=== PATIENT | male | born 1980 | race Caucasian/White ===

== ENCOUNTER 2016-10-01 14:30 | Emergency (ER) | payer MEDICAID, OTHER ==
[2016-10-01 15:04] VITALS: BP 130/84; PULSE 87; RESP 18; TEMP 97.2
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
--- NOTE | 2016-10-01 15:55 | XR ---
EXAMINATION TYPE: XR foot complete LT DATE OF EXAM: 10/01/2016 3:50 PM CLINICAL HISTORY: Medial pain after hockey injury. TECHNIQUE: Frontal, lateral, and oblique images of the left foot are obtained. COMPARISON: None FINDINGS: There is acute oblique minimally displaced intra-articular fracture through the medial bas e of the first proximal phalanx. Lateral view is suboptimal due to osseous overlap. Joint spaces in t he right foot appear within normal limits. The overlying soft tissue appears unremarkable. IMPRESSION: There is acute minimally displaced oblique intra-articular fracture through the medial b ase of first proximal phalanx. (Initial encounter closed type post traumatic fracture)
== END 2016-10-01 16:44 | disposition home or self-care (01) ==
LOC: EC 14:30
DX: S92.912A Unspecified fracture of left toe(s), initial encounter for closed fracture (principal); F95.2 Tourette's disorder; F90.9 Attention-deficit hyperactivity disorder, unspecified type; F17.200 Nicotine dependence, unspecified, uncomplicated; Z88.2 Allergy status to sulfonamides; Z79.899 Other long term (current) drug therapy; W50.0XXA Accidental hit or strike by another person, initial encounter
CPT/HCPCS: 99283

== ENCOUNTER 2016-10-18 05:57 | Emergency (ER) | payer OTHER ==
[2016-10-18 06:03] VITALS: BP 125/66; PULSE 98; RESP 18; TEMP 97
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
--- NOTE | 2016-10-18 06:34 | XR ---
EXAMINATION TYPE: XR wrist complete RT DATE OF EXAM: 10/18/2016 6:24 AM CLINICAL HISTORY: pain right wrist pain from punching floor. TECHNIQUE: Frontal, lateral and oblique images of the right wrist are obtained. COMPARISON: None. FINDINGS: There is no acute fracture/dislocation evident. The joint spaces appear within normal limits. The o verlying soft tissue appears unremarkable. There is possibility of old fracture in the right first me tacarpal bone. IMPRESSION: There is no acute fracture or dislocation seen. ICD 10 NO FRACTURE, INITIAL EVALUATION
--- NOTE | 2016-10-18 06:37 | XR ---
EXAMINATION TYPE: XR hand complete RT DATE OF EXAM: 10/18/2016 6:24 AM CLINICAL HISTORY: pain punching the floor TECHNIQUE: Frontal, lateral and oblique images of the right hand are obtained. COMPARISON: None. FINDINGS: There is no acute fracture/dislocation evident. The joint spaces appear within normal limi ts. Mild soft tissue swelling is present. There is possibility of old fracture of right first metacar pal bone. IMPRESSION: There is no acute fracture or dislocation. If clinical symptoms persist follow-up fracture a follow-u p in one week's time may be helpful. ICD 10 NO FRACTURE, INITIAL EVALUATION
== END 2016-10-18 06:50 | disposition home or self-care (01) ==
LOC: EC 05:57
DX: S60.221A Contusion of right hand, initial encounter (principal); F95.2 Tourette's disorder; F90.9 Attention-deficit hyperactivity disorder, unspecified type; F41.9 Anxiety disorder, unspecified; F31.9 Bipolar disorder, unspecified; F17.200 Nicotine dependence, unspecified, uncomplicated; W22.03XA Walked into furniture, initial encounter; Z79.899 Other long term (current) drug therapy; Z88.2 Allergy status to sulfonamides
CPT/HCPCS: 99283

== ENCOUNTER 2016-10-26 09:58 | Emergency (ER) | payer OTHER ==
[2016-10-26 10:04] VITALS: BP 126/65; PULSE 84; RESP 18; TEMP 96.9
--- NOTE | 2016-10-26 10:53 | ED ---
Neck Injury/Pain HPI - General Chief Complaint: Neck Pain/Injury Stated Complaint: headache, body pain Time Seen by Provider: 10/26/16 10:21 Source: patient, RN notes reviewed Mode of arrival: ambulatory Limitations: no limitations - History of Present Illness Initial Comments: This patient is a 36-year-old man who presents requesting pain medication for neck, back, and head pain. The patient states that he has the pains related to the tics that he has as a consequence of Tourette's syndrome. The patient states that he has not been able to establish a primary physician in the area due to insurance reasons, and that for that reason his previous pain regimen has lapsed. The patient denies any new injury. He states that the pain is chronic and intermittent. He indicates the areas of the right trapezius and paraspinal muscles as the greatest. It seems to him that this is where his tics are most severe. MD Complaint: neck pain -: month(s) Severity: severe, intermittent, similar to prior neck pain Quality: aching Improves With: none Worsens With: movement of neck Context: other (Tics) Associated Symptoms: none - Related Data Home Medications Medication Instructions Recorded Confirmed cloNIDine HCL [Catapres] 0.2 mg PO BID 07/01/16 10/26/16 Previous Rx's Medication Instructions Recorded Gabapentin [Neurontin] 800 mg PO TID #120 cap 07/04/16 risperiDONE [RisperDAL] 3 mg PO HS #90 tab 07/04/16 Baclofen [Lioresal] 20 mg PO TID #45 tab 10/26/16 Allergies Allergy/AdvReac Type Severity Reaction Status Date / Time Sulfa (Sulfonamide Allergy Unknown Verified 10/26/16 10:04 Antibiotics) Childhood Review of Systems ROS Statement: Those systems with pertinent positive or pertinent negative responses have been documented in the HPI. ROS Other: All systems not noted in ROS Statement are negative. Constitutional: Denies: fever, chills ENT: Denies: throat pain Respiratory: Denies: cough, dyspnea Cardiovascular: Denies: chest pain, palpitations, dyspnea on exertion Gastrointestinal: Denies: abdominal pain Musculoskeletal: Reports: as per HPI, back pain Neurological: Denies: weakness, numbness, paresthesias Past Medical History Additional Past Medical History / Comment(s): TOURETTE'S, Anxiety History of Any Multi-Drug Resistant Organisms: None Reported Past Surgical History: No Surgical Hx Reported Past Psychological History: ADD/ADHD, Anxiety, Bipolar Smoking Status: Current every day smoker Past Alcohol Use History: None Reported Past Drug Use History: None Reported General Exam Limitations: no limitations General appearance: alert, in no apparent distress Head exam: Present: atraumatic, normocephalic Eye exam: Present: normal appearance. Absent: scleral icterus, conjunctival injection ENT exam: Present: normal oropharynx Neck exam: Present: normal inspection, tenderness (Right trapezius and paraspinal muscles), full ROM Respiratory exam: Present: normal lung sounds bilaterally. Absent: respiratory distress, wheezes, rales, rhonchi, stridor Cardiovascular Exam: Present: regular rate, normal rhythm, normal heart sounds. Absent: systolic murmur, diastolic murmur, rubs, gallop GI/Abdominal exam: Present: soft. Absent: distended, tenderness, guarding, rebound Back exam: Present: normal inspection, paraspinal tenderness. Absent: CVA tenderness (R), CVA tenderness (L), vertebral tenderness Neurological exam: Present: alert Skin exam: Present: warm, dry, intact, normal color. Absent: rash Course Vital Signs 10/26/16 10/26/16 10:01 11:16 Temperature 96.9 F L 96.9 F L Pulse Rate 84 84 Respiratory 18 18 Rate Blood Pressure 126/65 126/65 O2 Sat by Pulse 99 99 Oximetry Disposition Clinical Impression: Tourette syndrome, Neck pain Disposition: HOME SELF-CARE Condition: Good Instructions: Cervical Strain (ED) Prescriptions: Baclofen [Lioresal] 20 mg PO TID #45 tab Referrals: Diana James MD [STAFF PHYSICIAN] - 1-2 days Lin Sharma MD [REFERRING] - 1-2 days Lin Matthew MD [STAFF PHYSICIAN] - 1-2 days
[2016-10-26] MEDS ORDERED: BACLOFEN 10 MG TAB PO STA (10:56)
== END 2016-10-26 11:16 | disposition home or self-care (01) ==
LOC: EC 09:58
DX: S16.1XXA Strain of muscle, fascia and tendon at neck level, initial encounter (principal); F95.2 Tourette's disorder; F31.9 Bipolar disorder, unspecified; F90.9 Attention-deficit hyperactivity disorder, unspecified type; F41.9 Anxiety disorder, unspecified; F17.200 Nicotine dependence, unspecified, uncomplicated; Z79.899 Other long term (current) drug therapy; Z88.2 Allergy status to sulfonamides; X58.XXXA Exposure to other specified factors, initial encounter
CPT/HCPCS: 99283

== ENCOUNTER 2016-10-29 14:31 | Inpatient (IN) | payer MEDICAID, OTHER ==
--- NOTE | 2016-10-29 15:44 | ED ---
Psych HPI <Sunil Palencia - Last Filed: 10/29/16 19:05> - General Source: patient, RN notes reviewed Mode of arrival: ambulatory <Natasha Leslie - Last Filed: 10/29/16 19:17> - General Chief Complaint: Psychiatric Symptoms Stated Complaint: Mental Health Time Seen by Provider: 10/29/16 15:15 - History of Present Illness Initial Comments: Patient is a 36-year-old male presents to the emergency room for psychiatric evaluation. Patient states been depressed for the past few months. Patient does admit that he follows up with [facility] and was supposed to meet with his counselor on Thursday. Patient states "I cannot seem to kill myself". Patient states last night he took about 10 baclofen and was very upset that he still alive. Patient denies abdominal pain, nausea, vomiting, headache, dizziness, chest pain, shortness of breath, weakness, numbness or tingling in extremities. Patient states that a lot has been going on his life and he feels " inside ". Patient states that he does not want to live anymore. Patient also states that he's been having homicidal ideations towards one of his old roommates because he owes him a lot of money. Patient also states he's been hearing voices in his head telling him to hurt his old roommate. Patient denies visual hallucinations. Patient denies alcohol use. Patient does admit he smokes half a pack of cigarettes per day. Patient denies illicit drug use. Patient denies significant past medical history. Patient states he feels like he needs to be admitted and have his depression medications adjusted. (Natasha Leslie) - Related Data Home Medications Medication Instructions Recorded Confirmed cloNIDine HCL [Catapres] 0.2 mg PO TID 07/01/16 10/29/16 buPROPion [Wellbutrin] 100 mg PO BID 10/29/16 10/29/16 risperiDONE 3 mg PO HS 10/29/16 10/29/16 Previous Rx's Medication Instructions Recorded Gabapentin [Neurontin] 800 mg PO TID #120 cap 07/04/16 Baclofen [Lioresal] 20 mg PO TID #45 tab 10/26/16 Allergies Allergy/AdvReac Type Severity Reaction Status Date / Time iodine Allergy Rash/Hives Verified 10/29/16 16:05 shellfish derived [Shellfish] Allergy Rash/Hives Verified 10/29/16 16:05 Sulfa (Sulfonamide Allergy Unknown Verified 10/29/16 16:05 Antibiotics) Childhood Review of Systems ROS Other: All systems not noted in ROS Statement are negative. <Sunil Palencia - Last Filed: 10/29/16 19:05> ROS Other: All systems not noted in ROS Statement are negative. <Natasha Leslie - Last Filed: 10/29/16 19:17> ROS Statement: Those systems with pertinent positive or pertinent negative responses have been documented in the HPI. Past Medical History Additional Past Medical History / Comment(s): TOURETTE'S, Anxiety History of Any Multi-Drug Resistant Organisms: None Reported Past Surgical History: No Surgical Hx Reported Past Psychological History: ADD/ADHD, Anxiety, Bipolar Smoking Status: Current every day smoker Past Alcohol Use History: None Reported Past Drug Use History: None Reported <Natasha Leslie - Last Filed: 10/29/16 19:17> General Exam <Sunil Palencia - Last Filed: 10/29/16 19:05> Limitations: no limitations General appearance: alert, in no apparent distress Head exam: Present: atraumatic, normocephalic, normal inspection Eye exam: Present: normal appearance ENT exam: Present: normal exam Neck exam: Present: normal inspection Respiratory exam: Present: normal lung sounds bilaterally. Absent: respiratory distress Cardiovascular Exam: Present: regular rate, normal rhythm, normal heart sounds GI/Abdominal exam: Present: soft, normal bowel sounds. Absent: distended, tenderness, guarding, rebound, rigid Extremities exam: Present: normal inspection Back exam: Present: normal inspection Neurological exam: Present: alert, oriented X3, CN II-XII intact, normal gait Psychiatric exam: Present: normal affect, normal mood Skin exam: Present: warm, dry, intact, normal color. Absent: rash <Natasha Leslie - Last Filed: 10/29/16 19:17> - General Exam Comments Initial Comments: Sitting in exam room in no acute distress. (Natasha Leslie) Disposition <Sunil Palencia - Last Filed: 10/29/16 19:05> Decision Date: 10/29/16 <Natasha Leslie - Last Filed: 10/29/16 19:17> Clinical Impression: Depression Disposition: ADMITTED IP TO THIS HOSP Condition: Stable
[2016-10-29] MEDS ORDERED: LORazepam 1 MG TAB PO STA (17:32)
[2016-10-29] MEDS ORDERED: MAG HYDROX/AL HYDROX/SIMETH 30 ML CUP PO PRN (19:57)
[2016-10-29] MEDS ORDERED: ACETAMINOPHEN TAB 325 MG TAB PO PRN (19:57)
[2016-10-29] MEDS ORDERED: MAGNESIUM HYDROXIDE 2,400 MG/10 ML CUP PO PRN (19:57)
[2016-10-29] MEDS ORDERED: LORazepam 2 MG/ML SYRINGE IM PRN (20:02)
[2016-10-29] MEDS: buPROPion 100 MG TAB PO SCH (20:56)
[2016-10-29] MEDS: cloNIDine HCL 0.2 MG TAB PO SCH (20:57)
[2016-10-29] MEDS: risperiDONE 1 MG TAB PO SCH (20:57)
[2016-10-29] MEDS: GABAPENTIN 400 MG CAP PO SCH (20:58)
[2016-10-29] MEDS: LORazepam 1 MG TAB PO PRN (21:00)
[2016-10-30] MEDS: buPROPion 100 MG TAB PO SCH (09:02)
[2016-10-30] MEDS: cloNIDine HCL 0.2 MG TAB PO SCH ×3 (09:04→21:13)
[2016-10-30] MEDS: GABAPENTIN 400 MG CAP PO SCH ×3 (09:04→21:14)
[2016-10-30] MEDS: NICOTINE 14MG/24HR PATCH TRANSDERM SCH ×2 (09:04→12:26)
[2016-10-30] MEDS: LORazepam 1 MG TAB PO PRN ×2 (09:05→18:26)
[2016-10-30 09:24] LABS: Basophils % (A) 1 %; CH 29.2; CHCM 32.6; Eosinophils # (A) 0.1 k/uL (0-0.7); Eosinophils % (A) 1 %; HCT 40.7 % (39.0-53.0); HDW 2.55; HGB 12.9 gm/dL (13.0-17.5); Luc # (Auto) 0.18; Luc % (Auto) 3; Lymphocytes # (A) 2.1 k/uL (1.0-4.8); Lymphocytes % (A) 34 %; MCH 28.6 pg (25.0-35.0); MCHC 31.8 g/dL (31.0-37.0); MCV 89.9 fL (80.0-100.0); Mean Platelet Volume 6.9; Monocytes # (A) 0.4 k/uL (0-1.0); Monocytes % (A) 7 %; Neutrophils # (A) 3.5 k/uL (1.3-7.7); Neutrophils % (A) 55 %; RBC 4.52 m/uL (4.30-5.90); RDW 12.9 % (11.5-15.5); WBC 6.3 k/uL (3.8-10.6); WBC (Perox) 6.91
[2016-10-30 09:35] LABS: ALT 24 U/L (21-72); AST 20 U/L (17-59); Alkaline Phosphatase 67 U/L (38-126); Anion Gap 11 mmol/L; Blood Urea Nitrogen 6 mg/dL (9-20); Calcium 9.7 mg/dL (8.4-10.2); Carbon Dioxide 25 mmol/L (22-30); Chloride 108 mmol/L (98-107); Glucose 99 mg/dL (74-99); Non-African American GFR(MDRD) >60 (>60 ml/min/1.73 sqM); Potassium 4.7 mmol/L (3.5-5.1); Sodium 144 mmol/L (137-145); Total Bilirubin 0.4 mg/dL (0.2-1.3); Total Protein 7.2 g/dL (6.3-8.2)
[2016-10-30] MEDS: HYDROcodone/APAP 5-325MG 1 EACH TAB PO PRN ×3 (10:00→22:05)
[2016-10-30 11:13] VITALS: BMI 20.1
[2016-10-30] MEDS ORDERED: INFLUENZA VACCINE (3YR+) 60 MCG/0.5 ML SYRINGE IM ONE (11:16)
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
[2016-10-30] MEDS: buPROPion SR 150 MG TABLET.ER PO SCH (21:13)
[2016-10-30] MEDS: risperiDONE 1 MG TAB PO SCH (21:13)
[2016-10-31] MEDS: HYDROcodone/APAP 5-325MG 1 EACH TAB PO PRN ×3 (07:35→19:35)
[2016-10-31] MEDS: LORazepam 1 MG TAB PO PRN ×2 (07:36→15:35)
[2016-10-31] MEDS: buPROPion SR 150 MG TABLET.ER PO SCH ×2 (09:07→20:48)
[2016-10-31] MEDS: cloNIDine HCL 0.2 MG TAB PO SCH ×3 (09:07→22:51)
[2016-10-31] MEDS: GABAPENTIN 400 MG CAP PO SCH ×3 (09:07→20:48)
[2016-10-31] MEDS: NICOTINE 14MG/24HR PATCH TRANSDERM SCH (09:53)
[2016-10-31] MEDS: ZIPRASIDONE 20 MG VIAL IM PRN ×2 (12:04→21:55)
[2016-10-31] MEDS ORDERED: WATER FOR INJECTION, STERILE 10 ML IV ONE ×2 (12:06→21:51)
[2016-10-31 13:22] LABS: Hepatitis B Surface Ag Index 0.08
[2016-10-31 13:27] LABS: Hepatitis B Core IgM Index 0.04
[2016-10-31 13:39] LABS: Hepatitis C Virus IgG Index 0.04
[2016-10-31 13:41] LABS: Hepatitis C Virus IgG Ab Negative (Negative)
--- NOTE | 2016-10-31 13:41 | P.PN ---
Progress Note - Text SUBJECTIVE: Mr. Lubin talked about his resentment towards his mother for leaving his father when he was 11 years old. He has spoken to his father about his feelings and his father told him that he needs to talk with his mother. He is less depressed than yesterday. He enjoys socializing with staff and peers. He denied having current thoughts of or suicide. We talked about the results of his urine drug screen. He stated that he was taking Adderall and Narco he obtained from a friend. He was unable to explain the reason for the positive barbiturates screen but admits to also taking a benzodiazepine . He was vague about where he obtained a benzodiazepine. He inquired about increasing the dose or strength of lorazepam or possibly changing the medication to clonazepam. I explained my concerns about prescribing any benzodiazepines given his history of abuse. We talked about the marked change in his mood. He was able to associate improvement to being in and a supportive social environment. OBJECTIVE: He was casually dressed and neatly groomed. He is pleasant on approach and engaged in interview. He maintained eye contact. He had a bright facial expression. He showed no abnormality of psychomotor activity. He had no tics or abnormal involuntary movements during our interview. His speech was spontaneous with normal rate, rhythm and volume. His affect was blunted but bright and stable. He denied suicidal ideation or wishes. He denied homicidal ideation. He denied depressive cognitions such as hopelessness, helplessness or worthlessness. He did not describe compulsive behaviors and did not express obsessional thinking. He did not express ideas of reference or paranoid thoughts. His thinking was abstract and associations were coherent and goal directed. ASSESSMENT: He is shown improvement in his mood with decreased symptoms depression. He admitted to continued abuse of psychostimulants, opiates and possibly benzodiazepines. He continues to be benzodiazepine seeking PLAN: Psychiatric hospitalization to address recurrent depression and history of thoughts of suicide. Continue Wellbutrin SR 150 mg twice a day and titrated according to clinical effect and side effects. Continue clonidine 0.2 mg 3 times a day and risperidone 3 mg at bedtime for treatment of Tourette's syndrome. Continue gabapentin 80 mg 3 times a day and Narco 5-325 for treatment of chronic neck pain secondary to chronic involuntary movements. Encouraged continued participation in therapeutic groups and activities. Evaluate clinical status response to treatment on a daily basis.
--- NOTE | 2016-10-31 15:05 | P.CONS ---
History of Present Illness - Reason for Consult Consult date: 10/30/16 Medical management - History of Present Illness This is a 36-year-old male. He states he does not have a primary care physician. He has a past medical history of Tourette's ADHD, anxiety and bipolar, tobacco use and dependence, polysubstance abuse but has been clean since 01/05/2016. Patient states that he follows with Dr. Mata every 4 weeks. He states he has been depressed and lonely and not doing well. He states he had suicidal thoughts and he took baclofen 10 tablets and when he woke up in the morning he was still alive he came into the hospital. His father brought him into [facility] emergency center for evaluation. TSH 0.845. Urine drug screen was positive for opiates, barbiturates, amphetamines, benzodiazepines. Patient is requesting testing for HIV and hepatitis due to his IV drug use of heroin. Review of Systems All systems: negative Constitutional: Denies chills, Denies fever Eyes: denies blurred vision, denies pain Ears, nose, mouth and throat: Denies headache, Denies sore throat Cardiovascular: Denies chest pain, Denies shortness of breath Respiratory: Denies cough Gastrointestinal: Denies abdominal pain, Denies diarrhea, Denies nausea, Denies vomiting Musculoskeletal: Denies myalgias Integumentary: Denies pruritus, Denies rash Neurological: Denies numbness, Denies weakness Psychiatric: Reports anxiety, Reports depression, Reports hopelessness, Reports suicidal ideation Endocrine: Denies fatigue, Denies weight change Past Medical History Additional Past Medical History / Comment(s): TOURETTE'S History of Any Multi-Drug Resistant Organisms: None Reported Past Surgical History: No Surgical Hx Reported Additional Past Surgical History / Comment(s): Colonoscopy normal Past Anesthesia/Blood Transfusion Reactions: No Reported Reaction Past Psychological History: ADD/ADHD, Anxiety, Bipolar Smoking Status: Current every day smoker Past Alcohol Use History: Abuse Additional Past Alcohol Use History / Comment(s): Patient is a smoker one pack per day since he was 20 years of age. He does have history of IV heroin use, cocaine, methamphetamines, opiates and has been clean since 01/05/2016. He is currently living alone. He has a 7-year-old boy with no major medical problems. He denies any marijuana or alcohol use. Pt. states he has been sober from alcohol more than 5 years Past Drug Use History: Cocaine, Heroin, Methamphetamine, Opiates - Past Family History Father Additional Family Medical History / Comment(s): Father is alive at age 69 with history of hypertension. Mother Additional Family Medical History / Comment(s): Mother is alive at age 64 with mental health issues. Sister(s) Additional Family Medical History / Comment(s): Patient has one sister that is 38 years old with no major medical problems. He has one half sister that is 15 years old with no major medical problems. Medications and Allergies Home Medications Medication Instructions Recorded Confirmed Type cloNIDine HCL [Catapres] 0.2 mg PO TID 07/01/16 10/29/16 History buPROPion [Wellbutrin] 100 mg PO BID 10/29/16 10/29/16 History risperiDONE 3 mg PO HS 10/29/16 10/29/16 History Allergies Allergy/AdvReac Type Severity Reaction Status Date / Time iodine Allergy Rash/Hives Verified 10/29/16 16:05 shellfish derived [Shellfish] Allergy Rash/Hives Verified 10/29/16 16:05 Sulfa (Sulfonamide Allergy Unknown Verified 10/29/16 16:05 Antibiotics) Childhood Physical Exam Vitals: Vital Signs Temp Pulse Pulse Resp BP BP Pulse Ox 10/30/16 10:58 60 18 124/99 10/30/16 09:05 88 18 139/69 10/30/16 07:06 97.5 F L 63 18 100/58 10/29/16 19:35 98.1 F 60 16 124/99 98 10/29/16 19:18 98 F 98 20 130/67 98 Intake and Output 10/29/16 10/30/16 10/30/16 22:59 06:59 14:59 Other: Weight 73.2 kg Patient Weight 10/31/16 06:59 Weight 73.2 kg Gen: This is a 36-year-old male. He is cooperative and appears to be in no acute distress. HEENT: Head is atraumatic, normocephalic. Pupils equal, round. Sclerae is anicteric. NECK: Supple. No JVD. No lymphadenopathy. No thyromegaly. LUNGS: Clear to auscultation. No wheezes or rhonchi. No intercostal retractions. HEART: Regular rate and rhythm. No murmur. ABDOMEN: Soft. Bowel sounds are present. No masses. No tenderness. EXTREMITIES: No pedal edema. No calf tenderness. NEUROLOGICAL: Patient is awake, alert and oriented x3. Cranial nerves 2 through 12 are grossly intact. Results CBC & Chem 7: 10/30/16 08:40 10/30/16 08:40 Labs: Abnormal Lab Results - Last 24 Hours (Table) 10/30/16 10/30/16 Range/Units 08:40 08:40 Hgb 12.9 L (13.0-17.5) gm/dL Chloride 108 H (98-107) mmol/L BUN 6 L (9-20) mg/dL Assessment and Plan Plan: 1. Depression with suicidal ideation. Patient admitted to the mental health unit. Continue current plan of care. 2. History of polysubstance abuse. Continue as in #1. 3. IV heroin use in the past. Hepatitis panel has been negative. HIV testing in process. 4. Tobacco use and dependence. Continue nicotine patch. 5. History of Tourette's with neuropathy, stable. Continue gabapentin. Impression and plan of care have been directed as dictated by the signing physician. Gabby Koch nurse practitioner acting as scribe for signing physician. Time with Patient: Greater than 30
[2016-10-31] MEDS: risperiDONE 1 MG TAB PO SCH (20:48)
[2016-10-31] MEDS ORDERED: ZIPRASIDONE 20 MG VIAL IM ONE (21:51)
[2016-11-01] MEDS: HYDROcodone/APAP 5-325MG 1 EACH TAB PO PRN ×4 (03:00→20:43)
[2016-11-01] MEDS: LORazepam 1 MG TAB PO PRN ×3 (03:00→18:40)
[2016-11-01] MEDS ORDERED: ZIPRASIDONE 20 MG VIAL IM ONE (04:23)
[2016-11-01] MEDS ORDERED: WATER FOR INJECTION, STERILE 10 ML IV ONE ×2 (04:23→11:06)
[2016-11-01] MEDS: ZIPRASIDONE 20 MG VIAL IM PRN ×2 (04:25→11:07)
[2016-11-01 07:19] LABS: HIV-1/HIV-2 Ab Screen NONREAC (NON REAC)
[2016-11-01] MEDS: GABAPENTIN 400 MG CAP PO SCH ×3 (08:13→20:42)
[2016-11-01] MEDS: cloNIDine HCL 0.2 MG TAB PO SCH ×3 (08:14→21:57)
[2016-11-01] MEDS: buPROPion SR 150 MG TABLET.ER PO SCH ×2 (08:14→20:41)
[2016-11-01] MEDS: NICOTINE 14MG/24HR PATCH TRANSDERM SCH (08:16)
--- NOTE | 2016-11-01 17:18 | P.PN ---
Progress Note - Text Interval history: Patient is seen in cross coverage today for Dr. Orellana. He describes that his mood is doing better but he complains of significant anxiety. He describes panic attacks. He relates that Xanax and Klonopin a been more helpful than Ativan in the past. He reports that the Ativan is not really giving him benefit. He does also describe his history of being on Adderall which did increase his tics but Ritalin did well for him and seemed actually help his Tourette's. Mental status exam: He is alert and cooperative with the interview. His speech is fluent, not rapid or pressured. Thought processes organized. His mood he describes is improved. He does not verbalize any thoughts of harm to self or others. He does not show any evidence of psychosis. He does have 1 episode of motor tic during the session. Plan: We'll maintain current psychotropic medications at this time. Continue to monitor for any medication side effects. We did discuss other potential options for anxiety such as Vistaril which she seems to have had not benefit with in the past and also discussed SSRI medications. It sounds like he has been on several antidepressants in the past. He'll continue to discuss his symptoms with Dr. Orellana as well when he resumes care on Thursday.
[2016-11-01] MEDS: risperiDONE 1 MG TAB PO SCH (20:42)
[2016-11-02] MEDS: HYDROcodone/APAP 5-325MG 1 EACH TAB PO PRN ×3 (06:40→18:34)
[2016-11-02] MEDS: LORazepam 1 MG TAB PO PRN ×2 (06:40→14:32)
[2016-11-02] MEDS: buPROPion SR 150 MG TABLET.ER PO SCH ×2 (08:22→20:05)
[2016-11-02] MEDS: GABAPENTIN 400 MG CAP PO SCH ×3 (08:22→20:05)
[2016-11-02] MEDS: cloNIDine HCL 0.2 MG TAB PO SCH ×3 (08:22→20:05)
[2016-11-02] MEDS: NICOTINE 14MG/24HR PATCH TRANSDERM SCH (08:24)
[2016-11-02] MEDS ORDERED: traZODone HCL 50 MG TAB PO PRN (12:41)
--- NOTE | 2016-11-02 12:45 | P.PN ---
Progress Note - Text Interval history: Patient seen in cross coverage today for Dr. Orellana. He reports that he is having difficulty with sleep, slept only about 4 hours last night. He describes his overall mood is doing better. He wonders though about the effectiveness of Wellbutrin, he inquires regarding the use of Effexor which it sounds like he has not been on. He does describe some ongoing anxiety. He relays that he had a good visit with family last night. He reports that they' re coming again tonight. He also wonders about the possibility of low testosterone. Mental status exam: He is alert and cooperative. His speech is fluent, not rapid or pressured. Thought processes organized. His mood he describes is overall doing better. He denies any thoughts of harm to self others. No evidence of active psychosis or agitation. Plan: We will initiate trazodone low-dose at bedtime as needed for insomnia. He reports that he been on this before when he's been sober and it has worked well. He will discuss concerns about antidepressant and low testosterone further with Dr. Orellana. We did discuss the option of getting a lab workup for testosterone as an outpatient.
[2016-11-02] MEDS: risperiDONE 1 MG TAB PO SCH (20:05)
[2016-11-03] MEDS: LORazepam 1 MG TAB PO PRN ×2 (01:51→10:51)
[2016-11-03] MEDS: HYDROcodone/APAP 5-325MG 1 EACH TAB PO PRN ×2 (01:51→07:53)
[2016-11-03 06:02] VITALS: TEMP 98.1
[2016-11-03] MEDS: buPROPion SR 150 MG TABLET.ER PO SCH (07:54)
[2016-11-03] MEDS: NICOTINE 14MG/24HR PATCH TRANSDERM SCH ×2 (07:54→07:56)
[2016-11-03] MEDS: cloNIDine HCL 0.2 MG TAB PO SCH (07:54)
[2016-11-03] MEDS: GABAPENTIN 400 MG CAP PO SCH (07:54)
[2016-11-03 07:56] VITALS: BP 123/66; PULSE 80; RESP 18
--- NOTE | 2016-11-03 12:26 | P.DS ---
Providers Date of admission: 10/29/16 19:07 Attending physician: Alphonso Orellana MD Consults: 10/29/16 19:57 Consult Physician Routine Consulting Provider: Alphonso Spangler Consult Reason/Comments: follow up H & P Do you want consulting provider notified?: Already Contacted Primary care physician: Stated None - Discharge Diagnosis(es) (1) Major depressive disorder, recurrent episode, in partial remission Current Visit: Yes Status: Acute Priority: High (2) Cocaine use disorder, severe, in early remission Current Visit: Yes Status: Chronic Priority: Low (3) Opioid use disorder, severe, in early remission Current Visit: Yes Status: Chronic Priority: Medium (4) Methamphetamine use disorder, severe, in early remission Current Visit: Yes Status: Chronic Priority: Low (5) Suicidal thoughts Current Visit: No Status: Resolved Priority: Low (6) Tourette syndrome Current Visit: No Status: Chronic Priority: Low Hospital Course: Mr. Lubin is a 36-year-old single male who presented to unit involuntarily.. HISTORY OF PRESENT ILLNESS: His mother completed a Petition/Application for Hospitalization. On the Petition she wrote "is unable to care for herself. Tried to take pills to 10/28/16 to end his life as he feels he is inside. Talked about killing someone else. Has a very hard time functioning in life. Needs structure. Feels so helpless, and lost." I reviewed the medical record and interviewed Mr. Lubin. He stated that he has been feeling more and more depressed over the last several months. He stated that he continues to harbor resentment towards his mother for abandoning him and leaving his father when he was young. He feels that he is a failure and has no hope for improving his life. He is unhappy that he lives alone in an apartment and his father pays the rent. He stated he took several tablets of a "muscle relaxant" 2 days prior to admission in a suicide attempt. He woke up and spoke with his family about his distress. His depressive symptoms included sadness, pessimism, past failure, loss of pleasure, guilty feelings, punishment feelings, self dislike, self criticalness , crying, agitation, loss of interest in usual activities, indecisiveness, worthlessness, loss of energy, poor sleep, irritability, changes in appetite, difficulty concentration, decreased energy and loss of interest in sex. He described "voices in my head" but the description of his experience were not consistent with true auditory hallucinations. He completed the Wang Depression Inventory. His total score was 55 consistent with extreme symptoms of depression. His history is significant for Tourette syndrome diagnosed with he was a child. The Tourette's is treated with several medications including Risperdal and clonidine. He is had several tics as a child including grunting, coughing and various involuntary movements. The only persistent involuntary motor movement is a repeated hyperextension of his neck, closing his eyes and facial grimacing. He complains of moderately severe neck pain from a repeated hyperextension of his neck with modest relief with gabapentin. He denied psychotic symptoms such as ideas of reference, thought insertion, thought broadcasting or thought control. He described compulsive behaviors including checking him arranging things in order and counting. He denied obsessional thoughts, ideas or images. He describes chronic feelings of anxiety that fluctuates in intensity. He described experiencing panic attack but his descriptions of the experience appeared to be a relative increase in anxiety rather than a true panic attack. He has a history of use of heroin, methamphetamine, cocaine and crack cocaine but denied recent use. His urine drug screen was positive for opiates, barbiturates, amphetamines and benzodiazepines. PAST PSYCHIATRIC HISTORY: He stated this would be his fifth psychiatric hospitalization. He had one prior hospitalizations to this unit in June 2016. His discharge diagnoses include unspecified depressive disorder, Tourette syndrome and polysubstance abuse. He is enrolled and active with [facility]. His [facility] dietary manager is Marie and his psychiatrist is Dr. Mata. PAST MEDICAL HISTORY: His past medical history is include ADHD and Tourette syndrome. SUBSTANCE USE HISTORY: He stated that he had a history of abuse of methamphetamine, crack cocaine, cocaine, morphine and heroin for "about 1-2 years". He last used these drugs in December 2015. He injected morphine and heroin "a couple times". He denied recent use of alcohol but stated he had all call use problem until he was 26 or 27 years old. His only substance abuse treatment episode was at [facility] in December 2015. He uses nonprescribed benzodiazepines primarily Xanax and clonidine. He also alleges that he has been prescribed Narco for the treatment of back pain. HOSPITAL COURSE: We admitted him to the psychiatric unit on the care of this display card writer. We provided a biopsychosocial assessment. The outside solar sales consultant director of speech pathology completed the initial physical exam and medical history. The outside solar sales consultant's impression was depression with suicidal ideation, history of polysubstance use, IV heroin use in the past, tobacco use and dependence and a history of Tourette' s with neuropathy, stable. We continued outpatient medications for the treatment of Tourette's: Risperidone 3 mg at bedtime and Catapres 0.2 mg 3 times a day. We continued gabapentin 800 mg by mouth 3 times a day for the treatment of neck pain and neuropathy secondary to abnormal involuntary movements involving the neck and head. We increased his preadmission dose of well candle wicker 250 mg by mouth twice a day. We prescribed lorazepam 1 mg every 8 hours when necessary for anxiety and Narco 5-to 25 mg for treatment of neck pain. He showed a gradual decrease in symptoms of depression and thoughts of and suicide. He participated in therapeutic groups and activities. He identified his guilt over his past substance use as a strong contributor of his recurrent feelings of depression. He expressed an interest to participate in a substance abuse where he could discuss his experiences with overcoming his abuse of drugs. At time of discharge he denied feeling depressed or having thoughts of or suicide. Patient Condition at Discharge: Fair Plan - Discharge Summary New Discharge Prescriptions: Nicotine 14Mg/24Hr Patch [Habitrol] 1 patch TRANSDERM DAILY 14 Days buPROPion SR [Wellbutrin SR] 150 mg PO BID 30 Days traZODone HCL [Desyrel] 50 mg PO HS PRN 30 Days PRN Reason: Insomnia Discharge Medication List cloNIDine HCL [Catapres] 0.2 mg PO TID 07/01/16 [History] Gabapentin [Neurontin] 800 mg PO TID #120 cap 07/04/16 [Rx] risperiDONE 3 mg PO HS 10/29/16 [History] Nicotine 14Mg/24Hr Patch [Habitrol] 1 patch TRANSDERM DAILY 14 Days 11/03/16 [Rx ] buPROPion SR [Wellbutrin SR] 150 mg PO BID 30 Days 11/03/16 [Rx] traZODone HCL [Desyrel] 50 mg PO HS PRN 30 Days 11/03/16 [Rx] Follow up Appointment(s)/Referral(s): [facility] [Other] - 11/04/16 10:00 am (Dr Powell) [facility] [Outside] - 11/07/16 10:00 am (Ange Briceno) None,Stated [Primary Care Provider] - 1 Week Discharge Disposition: HOME SELF-CARE
== END 2016-11-03 13:41 | disposition home or self-care (01) | DRG 885 ==
LOC: EC 14:31 → 3MHU 19:07
PROVIDERS: ADMIT Psychiatry & Neurology Psychiatry; ATTEND Psychiatry & Neurology Psychiatry
DX: F33.41 Major depressive disorder, recurrent, in partial remission (principal); F14.20 Cocaine dependence, uncomplicated; R45.851 Suicidal ideations; F15.20 Other stimulant dependence, uncomplicated; F11.10 Opioid abuse, uncomplicated; F17.210 Nicotine dependence, cigarettes, uncomplicated; F41.0 Panic disorder [episodic paroxysmal anxiety]; F90.9 Attention-deficit hyperactivity disorder, unspecified type; F95.2 Tourette's disorder; G62.9 Polyneuropathy, unspecified; R45.850 Homicidal ideations; Z91.5 Personal history of self-harm; Z88.2 Allergy status to sulfonamides; Z91.041 Radiographic dye allergy status; Z91.013 Allergy to seafood
CPT/HCPCS: 80053; 80074; 80306; 82075; 84443; 85025; 87389; 99285

== ENCOUNTER 2016-12-02 10:35 | Inpatient (IN) | payer MEDICAID ==
[2016-12-02] MEDS ORDERED: MAG HYDROX/AL HYDROX/SIMETH 30 ML CUP PO PRN (11:13)
[2016-12-02] MEDS ORDERED: MAGNESIUM HYDROXIDE 2,400 MG/10 ML CUP PO PRN (11:13)
[2016-12-02] MEDS ORDERED: ACETAMINOPHEN TAB 325 MG TAB PO PRN (11:13)
[2016-12-02] MEDS: HYDROcodone/APAP 10-325MG 1 EACH TAB PO PRN ×2 (11:40→20:58)
[2016-12-02] MEDS: LORazepam 1 MG TAB PO PRN ×2 (11:40→21:01)
[2016-12-02 12:05] VITALS: BMI 20.6
[2016-12-02] MEDS: NICOTINE 14MG/24HR PATCH TRANSDERM SCH (12:46)
[2016-12-02] MEDS: DICLOFENAC SODIUM GEL 100 GM TUBE TOPICAL SCH ×3 (14:39→20:58)
--- NOTE | 2016-12-02 14:59 | P.HP ---
Psychiatric H&P - . H&P Date: 12/02/16 History & Physical: IDENTIFYING DATA: Mr. Lubin is a 36-year-old male has a history of Tourette syndrome, major depressive disorder, cocaine use, opiate use and methamphetamine use disorder. HISTORY OF PRESENT ILLNESS: I reviewed the medical record and interviewed Mr. Lubin. [facility] transfer him to the psychiatric unit for the treatment of a presumed overdose of bupropion. He presented to [facility] with complaints of abdominal distress, headache, neck pain and general malaise. He stated that the week prior to admission he took approximately 10-12 tablets of Fioricet to get high and for a headache. On the day prior to admission he again presented to [facility] after having insufflated approximately 60 tablets of Wellbutrin over a 4 day period. He stated that he started insufflating Wellbutrin "couple months ago". He had read that she can get high if you insufflated the Wellbutrin. He started using intermittently. He feels an amphetamine "sen" from insufflating the Wellbutrin. The "sen" last between 1-2 hours. He obtain his monthly prescription of Wellbutrin from his [facility] psychiatrist Dr. Mata last week and insufflated the month supply. After the four-day binge he complained of feeling out of sorts, confused and experiencing "severe" headache and neck pain. He became concerned for his health and called EMS. He also reported insufflating heroin "once" the week prior to admission. He denied the use of oral opiate pain medications, methamphetamine, cocaine, marijuana, etc. His urine drug screen on 12/01/2016 was positive for benzodiazepines and barbiturates only. He complained of feeling angry with himself for abusing the Wellbutrin. He feels that he has disappointed himself, his family, his psychiatrist and his treatment team. He denied feeling depressed or having thoughts of or suicide. He denied generalized anxiety. He denied panic attacks. He denied obsessions or compulsions. He denied psychotic symptoms such as auditory or visual hallucinations, ideas reference, thought insertion, thought broadcasting or thought control. PAST PSYCHIATRIC HISTORY: This would be his sixth psychiatric hospitalization. He's had 2 prior admissions to this unit - January 2017 and June 2016. He is enrolled and active with [facility]. His [facility] manager purchasing is Marie and his psychiatrist is Dr. Mata. PAST MEDICAL HISTORY: His past medical history is include ADHD and Tourette syndrome. ALLERGIES: He is ALLERGIC to iodine, shellfish and sulfa.. SUBSTANCE USE HISTORY: He has a history of abuse of methamphetamine, crack cocaine, cocaine, morphine and heroin. He last used heroin the week prior to admission but denied daily use. He injected morphine and heroin "a couple times " in the past. He denied recent use of alcohol but stated he had alcohol use problem until he was 26 or 27 years old. His only substance abuse treatment episode was at [facility] in December 2015. He uses nonprescribed benzodiazepines primarily Xanax and clonidine. He denied recent use of oral opiate pain medications. FAMILY PSYCHIATRIC/SUBSTANCE USE HISTORY: He stated that there is a history of mental illness on the maternal side of his family. LEGAL HISTORY: He denied that he is on probation, parole or has pending charges. His only legal history was was nonpayment of child support. SOCIAL HISTORY: His born and raised in [place]. His parents when he a child. His father raised him. He attended school until the 12th grade, did not graduate and has not obtained a GED. He stated he left school because he felt the rest by other students because of his Tourette's syndrome. He is unemployed and has no stable income. He lives in section 8 housing that is paid by his father. MENTAL STATUS EXAM: He presented as a tall thin casually groomed male who was pleasant on approach. He maintained eye contact and attended to the interview. He had no distinguishing features or prominent physical abnormalities. He had an anxious facial expression. He is alert and oriented to person, place and time. He had slight psychomotor retardation but no abnormal involuntary movements. He displayed no compulsive behaviors. His speech was spontaneous with normal rate, rhythm and volume. He had no articulation difficulty. His affect was blunted but stable and appropriate. He denied suicidal ideation or wishes. He denied homicidal ideation. He expressed depressive, missions including hopelessness and helplessness. He did not express phobias or ideas of reference. He ruminated about his drug use and the effect his job use on his health and his interpersonal relationships. He did not express paranoid ideation or delusional thinking. His thinking was abstract but his associations were coherent and logical. He denied hallucinations and did not appear to be responding to internal stimuli. Global impression of intellect is average. He is aware of his illness but was ambivalent about his need for substance use treatment. STRENGTHS: Good physical health, family support, engagement with community mental health WEAKNESSES: Continued substance use, chronic mental illness, Tourette syndrome. IMPRESSION: He is a 36-year-old man who has a history of Tourette's syndrome, substance use and recurrent depression. He presented to the unit with abuse of Wellbutrin and unintentional overdose of Wellbutrin as a result of his abuse. He began insufflating Wellbutrin approximate 4 months prior to admission. His use escalated to where he consumed a one-month supply in 4 days prior to his presentation to [facility]. He is angry and depressed but denies suicidal ideation. There is no evidence of psychotic symptoms. She he recognizes his substance use problem but is not committed to substance abuse treatment. PRINCIPLE DIAGNOSIS: Bupropion abuse, Unintentional overdose of bupropion, Tourette syndrome, opiate use disorder, benzodiazepine use disorder, opiate, methamphetamine and cocaine use disorder and sustained partial remission, lack of income, lack of employment RECOMMENDATION: Continue inpatient psychiatric hospitalization. He did not consolidate outpatient order for Wellbutrin. Continue risperidone 3 mg at bedtime and clonidine 0.2 mg 3 times a day for the treatment of Tourette's syndrome. Prescribed while inpatient Narco 5-325 every 8 hours when necessary for neck pain and lorazepam 1 mg every 8 hours when necessary for anxiety. Encourage participation in a residential substance abuse treatment program after discharge. Encourage participation in therapeutic groups and activities. Evaluate clinical status and response to treatment on a daily basis. Allergies Allergy/AdvReac Type Severity Reaction Status Date / Time iodine Allergy Rash/Hives Verified 12/02/16 11:11 shellfish derived [Shellfish] Allergy Rash/Hives Verified 12/02/16 11:11 Sulfa (Sulfonamide Allergy Unknown Verified 12/02/16 11:11 Antibiotics) Childhood Intake & Output 12/01/16 12/02/16 12/02/16 18:59 06:59 18:59 Weight 75 kg 12/02/16 11:29 12/02/16 13:12 12/02/16 14:54
[2016-12-02] MEDS: cloNIDine HCL 0.2 MG TAB PO SCH ×2 (15:12→21:00)
[2016-12-02] MEDS: GABAPENTIN 400 MG CAP PO SCH ×2 (15:12→21:00)
[2016-12-02] MEDS: risperiDONE 1 MG TAB PO SCH (20:58)
[2016-12-03] MEDS: GABAPENTIN 400 MG CAP PO SCH ×3 (08:11→21:39)
[2016-12-03] MEDS: NICOTINE 14MG/24HR PATCH TRANSDERM SCH (08:11)
[2016-12-03] MEDS: HYDROcodone/APAP 10-325MG 1 EACH TAB PO PRN (08:13)
[2016-12-03] MEDS: LORazepam 1 MG TAB PO PRN (08:14)
[2016-12-03] MEDS: cloNIDine HCL 0.2 MG TAB PO SCH ×3 (08:14→21:39)
[2016-12-03 08:27] LABS: Basophils # (A) 0.1 k/uL (0-0.2); Basophils % (A) 1 %; CH 30.1; CHCM 34.3; Eosinophils # (A) 0.1 k/uL (0-0.7); Eosinophils % (A) 1 %; HCT 40.5 % (39.0-53.0); HDW 2.69; HGB 13.3 gm/dL (13.0-17.5); Luc # (Auto) 0.21; Luc % (Auto) 3; Lymphocytes # (A) 2.2 k/uL (1.0-4.8); Lymphocytes % (A) 30 %; MCHC 32.9 g/dL (31.0-37.0); MCV 88.2 fL (80.0-100.0); Mean Platelet Volume 7.5; Monocytes # (A) 0.4 k/uL (0-1.0); Monocytes % (A) 6 %; Neutrophils # (A) 4.3 k/uL (1.3-7.7); Neutrophils % (A) 60 %; RBC 4.59 m/uL (4.30-5.90); RDW 13.1 % (11.5-15.5); WBC 7.3 k/uL (3.8-10.6); WBC (Perox) 7.84
[2016-12-03 08:38] LABS: ALT 22 U/L (21-72); AST 14 U/L (17-59); Alkaline Phosphatase 73 U/L (38-126); Anion Gap 11 mmol/L; Blood Urea Nitrogen 10 mg/dL (9-20); Calcium 9.4 mg/dL (8.4-10.2); Carbon Dioxide 25 mmol/L (22-30); Chloride 107 mmol/L (98-107); Glucose 102 mg/dL (74-99); Non-African American GFR(MDRD) >60 (>60 ml/min/1.73 sqM); Potassium 4.6 mmol/L (3.5-5.1); Sodium 143 mmol/L (137-145); Total Bilirubin 0.3 mg/dL (0.2-1.3); Total Protein 6.7 g/dL (6.3-8.2)
[2016-12-03] MEDS: DICLOFENAC SODIUM GEL 100 GM TUBE TOPICAL SCH ×4 (11:23→21:43)
[2016-12-03] MEDS ORDERED: HYDROcodone/APAP 5-325MG 1 EACH TAB PO PRN (13:19)
--- NOTE | 2016-12-03 13:23 | P.PN ---
Progress Note - Text SUBJECTIVE: I reviewed the medical record, interviewed Mr. Lubin and discuss his treatment and treatment plan during team meeting. He presented to my office with a request for either an increase in the dose of lorazepam or the prescription of a "more potent" benzodiazepine. He argued that he has a "high tolerance" for medications because his history of drug use. I explained my reluctance to increase the lorazepam and offered alternatives such as BuSpar, a non-stimulating antidepressant or Seroquel. He declined the alternatives alleging that benzodiazepines are the only medication effective for his "anxiety ". We reviewed the reason for this admission and talked about his substance use problems and the benefits of admission to a substance abuse treatment program. He was resistant but agreed to "think about it" OBJECTIVE: He presented as a tall thin casually groomed 36-year-old male who was pleasant on approach. He maintained eye contact and attended to the interview. He had no distinction features are prominent physical abnormalities. He had a blunted but bright facial expression. He was alert and oriented to person, place and time. He showed no abnormality of psychomotor activity. He demonstrated no abnormal involuntary movements. His speech was spontaneous with decreased rate, rhythm and volume. His affect was blunted but stable and appropriate. He denied suicidal ideation or wishes. He denied homicidal ideation. He denied depressive cognitions such as hopelessness, helplessness and worthlessness. He denied ideas of reference and did not express annoyed ideation. His thinking was abstract and associations were coherent and logical. He denied hallucinations did not appear to be responding to internal stimuli. ASSESSMENT: He is medication seeking and ambivalent about substance abuse treatment. PLAN: Continue to discuss admission to substance abuse treatment program. Continue current medication including risperidone 3 mg at bedtime, clonidine 0.2 mg 3 times a day and gabapentin 800 mg 3 times a day. Decreased Narco to to the unit standard dosing of 5-325 by mouth every 8 hours when necessary for pain. Monitor frequency of use of lorazepam 1 mg by mouth every 8 hours when necessary for anxiety. Encourage participation in therapeutic groups and activities. Evaluate clinical status response to treatment daily basis.
[2016-12-03] MEDS ORDERED: QUEtiapine 25 MG TAB PO PRN (14:17)
[2016-12-03] MEDS: HYDROcodone/APAP 5-325MG 1 EACH TAB PO PRN ×2 (14:25→21:40)
--- NOTE | 2016-12-03 14:55 | P.CONS ---
History of Present Illness - Reason for Consult Consult date: 12/02/16 Medical management - History of Present Illness This is a 36-year-old male. He states he does not have a primary care physician. He has a past medical history of Tourette's, ADHD, anxiety and bipolar, tobacco use and dependence, polysubstance abuse. Patient states that he follows with Dr. Mata. patient states that he overdosed on Wellbutrin and took 58 pills over course of 4 days just to get high. He then developed nausea , vomiting, cold and hot sweats, agitation and irritation, insomnia and restlessness and ended up coming into the hospital. He also states he overdosed on Fioricet a few days before that to get high. His mom ended up bringing him in to the hospital. He also uses heroin last week. He is complaining of back, neck pain and stomach pain with nausea. He states he had diarrhea 3 times without blood. He denies any black stools. TSH 0.474. Patient has been admitted to the mental health unit. Review of Systems All systems: negative Constitutional: Denies chills, Denies fever Eyes: denies blurred vision, denies pain Ears, nose, mouth and throat: Denies headache, Denies sore throat Cardiovascular: Denies chest pain, Denies shortness of breath Respiratory: Denies cough Gastrointestinal: Denies abdominal pain, Denies diarrhea, Denies nausea, Denies vomiting Musculoskeletal: Denies myalgias Integumentary: Denies pruritus, Denies rash Neurological: Denies numbness, Denies weakness Psychiatric: Reports depression, Reports insomnia, Reports irritability, Denies anxiety Endocrine: Denies fatigue, Denies weight change Past Medical History Additional Past Medical History / Comment(s): TOURETTE'S. Back Pain History of Any Multi-Drug Resistant Organisms: None Reported Past Surgical History: No Surgical Hx Reported Additional Past Surgical History / Comment(s): Colonoscopy normal Past Anesthesia/Blood Transfusion Reactions: No Reported Reaction Past Psychological History: ADD/ADHD, Anxiety, Bipolar Smoking Status: Current every day smoker Past Alcohol Use History: Abuse Additional Past Alcohol Use History / Comment(s): Patient is a smoker one pack per day since he was 20 years of age. He does have history of IV heroin use, cocaine, methamphetamines, opiates and has been clean since 01/05/2016. He is currently living alone. He has a 7-year-old boy with no major medical problems. He denies any marijuana or alcohol use. Pt. states he has been sober from alcohol more than 5 years Past Drug Use History: Cocaine, Heroin, Methamphetamine, Opiates - Past Family History Father Additional Family Medical History / Comment(s): Father is alive at age 69 with history of hypertension. Mother Additional Family Medical History / Comment(s): Mother is alive at age 64 with mental health issues. Sister(s) Additional Family Medical History / Comment(s): Patient has one sister that is 38 years old with no major medical problems. He has one half sister that is 15 years old with no major medical problems. Medications and Allergies Home Medications Medication Instructions Recorded Confirmed Type cloNIDine HCL [Catapres] 0.2 mg PO BID 07/01/16 12/02/16 History risperiDONE 3 mg PO HS 10/29/16 12/02/16 History QUEtiapine [SEROquel] 200 mg PO HS 12/02/16 12/02/16 History busPIRone HCL [Buspar] 15 mg PO BID 12/02/16 12/02/16 History Allergies Allergy/AdvReac Type Severity Reaction Status Date / Time iodine Allergy Rash/Hives Verified 12/02/16 11:49 shellfish derived [Shellfish] Allergy Rash/Hives Verified 12/02/16 11:49 Sulfa (Sulfonamide Allergy Rash/Hives Verified 12/02/16 11:49 Antibiotics) Physical Exam Vitals: Vital Signs Temp Pulse Resp BP Pulse Ox 12/02/16 12:25 98.6 F 106 H 16 128/75 94 L 12/02/16 11:39 98.6 F 106 H 16 128/75 94 L Intake and Output 12/01/16 12/02/16 12/02/16 22:59 06:59 14:59 Other: Weight 75 kg Patient Weight 12/03/16 06:59 Weight 75 kg Gen: This is a 36-year-old male. He is cooperative and appears to be in no acute distress. HEENT: Head is atraumatic, normocephalic. Pupils equal, round. Sclerae is anicteric. NECK: Supple. No JVD. No lymphadenopathy. No thyromegaly. LUNGS: Clear to auscultation. No wheezes or rhonchi. No intercostal retractions. HEART: Regular rate and rhythm. No murmur. ABDOMEN: Soft. Bowel sounds are present. No masses. No tenderness. EXTREMITIES: No pedal edema. No calf tenderness. NEUROLOGICAL: Patient is awake, alert and oriented x3. Cranial nerves 2 through 12 are grossly intact. Results CBC & Chem 7: 12/03/16 07:41 12/03/16 07:41 Assessment and Plan Plan: 1. Depression, recurrent. Patient admitted to the mental health unit. Continue current plan of care. 2. Polysubstance abuse. Continue as in #1. 3. Heroin use by snorting. 4. Tobacco use and dependence. Continue nicotine patch. 5. History of Tourette's with neuropathy, stable. Continue gabapentin. Impression and plan of care have been directed as dictated by the signing physician. Gabby Koch nurse practitioner acting as scribe for signing physician. Time with Patient: Greater than 30
[2016-12-03] MEDS: risperiDONE 1 MG TAB PO SCH (21:39)
[2016-12-04 06:29] VITALS: RESP 16; TEMP 98
[2016-12-04] MEDS: GABAPENTIN 400 MG CAP PO SCH (08:16)
[2016-12-04] MEDS: DICLOFENAC SODIUM GEL 100 GM TUBE TOPICAL SCH ×2 (08:16→12:19)
[2016-12-04] MEDS: HYDROcodone/APAP 5-325MG 1 EACH TAB PO PRN (08:17)
[2016-12-04] MEDS: cloNIDine HCL 0.2 MG TAB PO SCH (08:58)
[2016-12-04 09:04] VITALS: BP 143/83; PULSE 109
[2016-12-04] MEDS: NICOTINE 14MG/24HR PATCH TRANSDERM SCH (09:14)
--- NOTE | 2016-12-04 11:27 | P.DS ---
Providers Date of admission: 12/02/16 10:35 Attending physician: Alphonso Orellana MD Consults: 12/02/16 11:13 Consult Physician Routine Consulting Provider: Vanessa Piña Consult Reason/Comments: H and P and medical management. Do you want consulting provider notified?: Yes Primary care physician: Stated None - Discharge Diagnosis(es) (1) Bupropion-induced mental alteration Current Visit: Yes Status: Acute Priority: High (2) Antidepressant abuse Current Visit: Yes Status: Acute Priority: High (3) Cocaine use disorder, severe, in early remission Current Visit: No Status: Chronic Priority: Low (4) Methamphetamine use disorder, severe, in early remission Current Visit: No Status: Chronic Priority: Low (5) Opioid use disorder, severe, in early remission Current Visit: No Status: Chronic Priority: Medium Hospital Course: Mr. Lubin is a 36-year-old male with a history of Tourette syndrome, depressive disorder, cocaine use, opiate use and methamphetamine use disorder. He presented on transfer from [facility] with a presumed overdose of bupropion. He presented to [facility] with complaints of abdominal distress, headache, neck pain and generalized malaise. He gave a history of abusing Fioricet and insufflating 60 tablets of Wellbutrin over the week prior to his presentation. He has been insufflating Wellbutrin for "a couple months" prior to admission. He had read that you can get high with bupropion. He reported an amphetamine-like experience from crushing and insufflating the Wellbutrin tablets. Please see the psychiatric assessment dated 12/02/2016. We admitted him to the psychiatric unit under the care of this writer technical publications. We provided a biopsychosocial assessment. The continuous improvement consultant cloth classer completed the initial medical history and physical exam. The cloth classer diagnosed probably substance use, heroin use, tobacco use and Tourette's with neuropathy, stable. We restarted clonidine 0.2 mg 3 times a day and risperidone 3 mg at bedtime for the treatment of Tourette's. He complained of back and neck pain and initially received Narco 10-325 mg every 6 hours when necessary. He became acutely distressed when I reduced the dose to the Narco 5-325 every 8 hours (we did not have evidence of a medical condition requiring high doses of narcotic pain medications). We negotiated to replace the when necessary lorazepam with when necessary Seroquel 25 mg every 6 for anxiety for an increase in frequency of Narco 5-325 to every 6 hours. We had several discussions about his history of substance use and the relationship between substance use and his mood. He recognizes that he has a problem and several times expressed disappointment with himself for having abused the Wellbutrin. However, he declined our recommendation for residential substance abuse treatment. At the time of discharge he denied thoughts of or suicide. He denied psychotic symptoms. He denied feeling depressed, hopeless or helpless. He will follow- up with [facility] including their dual diagnosis program. Patient Condition at Discharge: Stable Plan - Discharge Summary New Discharge Prescriptions: Nicotine 14Mg/24Hr Patch [Habitrol] 1 patch TRANSDERM DAILY 7 Days Discharge Medication List cloNIDine HCL [Catapres] 0.2 mg PO BID 07/01/16 [History] Gabapentin [Neurontin] 800 mg PO TID #120 cap 07/04/16 [Rx] risperiDONE 3 mg PO HS 10/29/16 [History] Nicotine 14Mg/24Hr Patch [Habitrol] 1 patch TRANSDERM DAILY 14 Days 11/03/16 [Rx ] Nicotine 14Mg/24Hr Patch [Habitrol] 1 patch TRANSDERM DAILY 7 Days 12/04/16 [Rx] Follow up Appointment(s)/Referral(s): None,Stated [Primary Care Provider] - 1 Week Patient Instructions/Handouts: How to Stop Smoking (DC), Depression (DC), Suicide Prevention for Adults (DC) Activity/Diet/Wound Care/Special Instructions: Activity and diet as tolerated. Avoid the use of street drugs and alcohol. Take all medications as prescribed. When you are in need of refills on your medications please contact your medical provider and/or outpatient psychiatrist to have this done. Please go to scheduled outpatient appointment for aftercare. If symptoms return or become worse call the crisis line at and/ or go to the nearest emergency room for an evaluation. Discharge Disposition: HOME SELF-CARE
== END 2016-12-04 12:22 | disposition home or self-care (01) | DRG 918 ==
LOC: 3MHU 10:35 → UNDOADMIN 10:45 → 3MHU 10:45
PROVIDERS: ADMIT Psychiatry & Neurology Psychiatry; ATTEND Psychiatry & Neurology Psychiatry
DX: T43.291A Poisoning by other antidepressants, accidental (unintentional), initial encounter (principal); F33.9 Major depressive disorder, recurrent, unspecified; F14.21 Cocaine dependence, in remission; R41.82 Altered mental status, unspecified; F11.21 Opioid dependence, in remission; F15.21 Other stimulant dependence, in remission; F17.200 Nicotine dependence, unspecified, uncomplicated; F41.9 Anxiety disorder, unspecified; F90.9 Attention-deficit hyperactivity disorder, unspecified type; F95.2 Tourette's disorder; G47.00 Insomnia, unspecified; G62.9 Polyneuropathy, unspecified; F19.10 Other psychoactive substance abuse, uncomplicated; R19.7 Diarrhea, unspecified; M54.9 Dorsalgia, unspecified; M54.2 Cervicalgia; Z79.899 Other long term (current) drug therapy; Z88.2 Allergy status to sulfonamides; Z91.041 Radiographic dye allergy status; Z91.013 Allergy to seafood; Z76.5 Malingerer [conscious simulation]; Z82.49 Family history of ischemic heart disease and other diseases of the circulatory system; Y92.009 Unspecified place in unspecified non-institutional (private) residence as the place of occurrence of the external cause
CPT/HCPCS: 80053; 84443; 85025

== ENCOUNTER 2017-08-15 12:14 | Emergency (ER) | payer OTHER ==
[2017-08-15 12:25] VITALS: TEMP 97.1
--- NOTE | 2017-08-15 12:25 | ED ---
General Adult HPI - General Chief complaint: Recheck/Abnormal Lab/Rx Stated complaint: Anxiety Time Seen by Provider: 08/15/17 12:16 Source: patient, EMS, RN notes reviewed, old records reviewed Mode of arrival: EMS Limitations: no limitations - History of Present Illness Initial comments: This is a 37-year-old male was brought ER for evaluation regarding unresponsive episode. Patient does have a roommate lives in a fpc, excess or drug abuse. Patient's it is only taking his prescribed medications. States he was sleeping today did not overdose. Patient denies homicidal or suicidal thoughts. Roommate did call PD secondary difficult to wake and they recommended patient come to ER for evaluation patient's currently awake and alert - Related Data Home Medications Medication Instructions Recorded Confirmed cloNIDine HCL [Catapres] 0.2 mg PO BID 07/01/16 12/19/16 risperiDONE 3 mg PO HS 10/29/16 12/19/16 QUEtiapine FUMARATE [SEROquel] 300 mg PO HS 12/19/16 12/19/16 busPIRone HCL 15 mg PO BID 12/19/16 12/19/16 Previous Rx's Medication Instructions Recorded Gabapentin [Neurontin] 800 mg PO TID #120 cap 07/04/16 Ondansetron Odt [Zofran Odt] 4 mg PO Q8HR PRN #12 tab 12/20/16 Allergies Allergy/AdvReac Type Severity Reaction Status Date / Time iodine Allergy Rash/Hives Verified 12/19/16 21:40 shellfish derived [Shellfish] Allergy Rash/Hives Verified 12/19/16 21:40 Sulfa (Sulfonamide Allergy Rash/Hives Verified 12/19/16 21:40 Antibiotics) Review of Systems ROS Statement: Those systems with pertinent positive or pertinent negative responses have been documented in the HPI. ROS Other: All systems not noted in ROS Statement are negative. Past Medical History Past Medical History: No Reported History Additional Past Medical History / Comment(s): TOURETTE'S. Back Pain History of Any Multi-Drug Resistant Organisms: None Reported Past Surgical History: No Surgical Hx Reported Additional Past Surgical History / Comment(s): Colonoscopy normal Past Anesthesia/Blood Transfusion Reactions: No Reported Reaction Past Psychological History: ADD/ADHD, Anxiety, Bipolar, Schizophrenia Smoking Status: Current every day smoker Past Alcohol Use History: None Reported Past Drug Use History: Cocaine, Heroin, Methamphetamine, Opiates - Past Family History Father Additional Family Medical History / Comment(s): Father is alive at age 69 with history of hypertension. Mother Additional Family Medical History / Comment(s): Mother is alive at age 64 with mental health issues. Sister(s) Additional Family Medical History / Comment(s): Patient has one sister that is 38 years old with no major medical problems. He has one half sister that is 15 years old with no major medical problems. General Exam Limitations: no limitations General appearance: alert, in no apparent distress Head exam: Present: atraumatic, normocephalic, normal inspection Eye exam: Present: normal appearance, PERRL, EOMI. Absent: scleral icterus, conjunctival injection, periorbital swelling ENT exam: Present: normal exam, mucous membranes moist Neck exam: Present: normal inspection. Absent: tenderness, meningismus, lymphadenopathy Respiratory exam: Present: normal lung sounds bilaterally. Absent: respiratory distress, wheezes, rales, rhonchi, stridor Cardiovascular Exam: Present: regular rate, normal rhythm, normal heart sounds. Absent: systolic murmur, diastolic murmur, rubs, gallop, clicks GI/Abdominal exam: Present: soft, normal bowel sounds. Absent: distended, tenderness, guarding, rebound, rigid Extremities exam: Present: normal inspection, full ROM, normal capillary refill. Absent: tenderness, pedal edema, joint swelling, calf tenderness Back exam: Present: normal inspection Neurological exam: Present: alert, oriented X3, CN II-XII intact Psychiatric exam: Present: normal affect, normal mood Skin exam: Present: warm, dry, intact, normal color. Absent: rash Course Vital Signs 08/15/17 12:20 Temperature 97.1 F L Pulse Rate 98 Respiratory 18 Rate Blood Pressure 138/86 O2 Sat by Pulse 99 Oximetry - Reevaluation(s) Reevaluation #1: 08/15/17 12:42 Patient remains awake and alert Medical Decision Making - Medical Decision Making 37 male with past history of drug abuse coming in for possible unresponsive episodes. Patient is awake and alert acting appropriately. Patient will be discharged home, not homicidal or suicidal. Patient denies overdose Disposition Clinical Impression: Drug abuse, Antidepressant abuse, Cocaine use disorder, severe, in early remission, Methamphetamine use disorder, severe, in early remission, Opioid use disorder, severe, in early remission, Bupropion-induced mental alteration Disposition: HOME SELF-CARE Condition: Fair Instructions: Polysubstance Abuse (ED) Referrals: None,Stated [Primary Care Provider] - 1-2 days
[2017-08-15 12:59] VITALS: BP 136/82; PULSE 84; RESP 16
== END 2017-08-15 12:58 | disposition home or self-care (01) ==
LOC: EC 12:14
DX: F19.19 Other psychoactive substance abuse with unspecified psychoactive substance-induced disorder (principal); F14.21 Cocaine dependence, in remission; F11.21 Opioid dependence, in remission; F15.21 Other stimulant dependence, in remission; F24 Shared psychotic disorder; F20.9 Schizophrenia, unspecified; F31.9 Bipolar disorder, unspecified; F41.9 Anxiety disorder, unspecified; F17.200 Nicotine dependence, unspecified, uncomplicated; Z79.899 Other long term (current) drug therapy; Z88.2 Allergy status to sulfonamides; Z91.013 Allergy to seafood; Z91.048 Other nonmedicinal substance allergy status; Z81.8 Family history of other mental and behavioral disorders
CPT/HCPCS: 99284